=== PATIENT | male | born 1980 | race African-American/Black ===

== ENCOUNTER 2016-07-22 04:28 | Emergency (ER) | payer OTHER ==
--- NOTE | ~2016-07-22 | CR282 ---
[facility] A Service of [facility] RADIOLOGY TEXT RESULTS PATIENT: DAVID ALANIS LOCATION: [facility] : 82 UNIT #: [id number] AGE: [address]: SAMY COLBY APRN SEX: M ORDER DR: [id number] [facility] [address] [place], [place] [address] [id number] E MR#: [id number] Acc #: [id number] NAME: DAVID ALANIS : 1980 SEX: M STUDY DATE/TIME: 07/22/2016 4:12 UNIT: [facility] ROOM: STUDY DESCRIPTION: CR Wrist Min 3 View Rt Attending Physician: Samy Colby Aprn Ordering Physician: Samy Colby Aprn Primary Care Physician: Primary Care Physician No MEDICAL IMAGING REPORT This report is preliminary unless electronic signature is present EXAM Right wrist series 07/22/2016 HISTORY 36-year-old male in the ED complaining of wrist pain after a fall today. TECHNIQUE 3 view right wrist series. FINDINGS Postop changes prior wrist surgery with screw anchors in the radial styloid and lunate. No fracture, dislocation or other acute osseous abnormality is demonstrated today. IMPRESSION 1. No acute osseous abnormality. 2. Postop changes as noted above. Dictated by... Ricardo Carballo M.D. THIS IS AN ELECTRONICALLY VERIFIED REPORT Ricardo Carballo M.D. at 07/27/2016 9:15 AM SHAYNE/tim TD: 07/22/2016 06:17 JOB #: [id number] MEDICAL IMAGING REPORT Page 1 of 1 COPY
--- NOTE | ~2016-07-22 | CR150 ---
[facility] A Service of [facility] RADIOLOGY TEXT RESULTS PATIENT: DAVID ALANIS LOCATION: [facility] : 81 UNIT #: [id number] AGE: [address]: SAMY COLBY APRN SEX: M ORDER DR: [id number] [facility] [address] [place], [place] [address] [id number] E MR#: [id number] Acc #: [id number] NAME: DAVID ALANIS : 1980 SEX: M STUDY DATE/TIME: 07/22/2016 4:09 UNIT: [facility] ROOM: STUDY DESCRIPTION: CR Hip Min 2 Views Lt Attending Physician: Samy Colby Aprn Ordering Physician: Samy Colby Aprn Primary Care Physician: Primary Care Physician No MEDICAL IMAGING REPORT This report is preliminary unless electronic signature is present EXAM Left hip series 07/22/2016. HISTORY 36-year-old male in the ED complaining of hip pain after a fall today. Prior history of hip surgery. TECHNIQUE Two-view left hip series. FINDINGS Exam shows postop changes ORIF, old healed left acetabular fracture. There is also old fracture deformity involving the left inferior pubic ramus near the symphysis. Moderate degenerative arthropathy involving both hip joints, greater on the left. No fracture, dislocation or other acute osseous abnormality is demonstrated. IMPRESSION 1. Old fracture deformities involving the left acetabulum and left pubic bone. ORIF surgery left acetabulum. 2. No acute osseous abnormality. 3. Moderate degenerative arthropathy involving both hips. Dictated by... Ricardo Carballo M.D. THIS IS AN ELECTRONICALLY VERIFIED REPORT Ricardo Carballo M.D. at 07/27/2016 9:15 AM SHAYNE/moody TD: 07/22/2016 06:19 JOB #: [id number] [facility] A Service of [facility] RADIOLOGY TEXT RESULTS PATIENT: DAVID ALANIS LOCATION: [facility] : 81 UNIT #: [id number] AGE: [address]: SAMY COLBY APRN SEX: M ORDER DR: MEDICAL IMAGING REPORT Page 1 of 1 COPY
--- NOTE | ~2016-07-22 | CR285 ---
[facility] A Service of [facility] RADIOLOGY TEXT RESULTS PATIENT: DAVID ALANIS LOCATION: [facility] : 82 UNIT #: [id number] AGE: [address]: SAMY COLBY APRN SEX: M ORDER DR: [id number] [facility] [address] [place], [place] [address] [id number] E MR#: [id number] Acc #: [id number] NAME: DAVID ALANIS : 1980 SEX: M STUDY DATE/TIME: 07/22/2016 4:05 UNIT: [facility] ROOM: STUDY DESCRIPTION: CR Wrist W Navicular Min 3 Lt Attending Physician: Samy Colby Aprn Ordering Physician: Samy Colby Aprn Primary Care Physician: Primary Care Physician No MEDICAL IMAGING REPORT This report is preliminary unless electronic signature is present EXAM Left wrist series 07/22/2016 HISTORY 36-year-old male in the ED complaining of wrist pain after a fall today. TECHNIQUE 3 view left wrist series with additional scaphoid view. 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 Degenerative arthropathy is noted at the radiocarpal articulations. No fracture, dislocation or other acute osseous abnormality is identified today. IMPRESSION 1. No acute osseous abnormality. 2. 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 3. Radiocarpal degenerative arthropathy. Dictated by... Ricardo Carballo M.D. THIS IS AN ELECTRONICALLY VERIFIED REPORT Ricardo Carballo M.D. at 07/27/2016 9:15 AM JUAN ALBERTOW/tim TD: 07/22/2016 06:15 JOB #: [id number] MEDICAL IMAGING REPORT [facility] A Service of [facility] RADIOLOGY TEXT RESULTS PATIENT: DAVID ALANIS LOCATION: [facility] : 82 UNIT #: [id number] AGE: [address]: SAMY COLBY APRN SEX: M ORDER DR: Page 1 of 1 COPY
--- NOTE | ~2016-07-22 | CR108 ---
[facility] A Service of [facility] RADIOLOGY TEXT RESULTS PATIENT: DAVID ALANIS LOCATION: [facility] : 82 UNIT #: [id number] AGE: [address]: SAMY COLBY APRN SEX: M ORDER DR: [id number] [facility] [address] [place], [place] [address] [id number] E MR#: [id number] Acc #: [id number] NAME: DAVID ALANIS : 1980 SEX: M STUDY DATE/TIME: 07/22/2016 4:07 UNIT: [facility] ROOM: STUDY DESCRIPTION: CR Finger 2 View 2nd Lt Attending Physician: Samy Colby Aprn Ordering Physician: Samy Colby Aprn Primary Care Physician: Primary Care Physician No MEDICAL IMAGING REPORT This report is preliminary unless electronic signature is present EXAM Left index finger series 07/22/2016. HISTORY 36-year-old male in the ED complaining of left index finger pain after a fall today. TECHNIQUE Three-view left index finger series. FINDINGS The examination is negative. No fracture, dislocation or other acute osseous abnormality is demonstrated. IMPRESSION Negative left index finger series. Dictated by... Ricardo Carballo M.D. THIS IS AN ELECTRONICALLY VERIFIED REPORT Ricardo Carballo M.D. at 07/27/2016 9:15 AM Carlos Alberto TD: 07/22/2016 06:16 JOB #: [id number] MEDICAL IMAGING REPORT Page 1 of 1 COPY
[~2016-07-22 04:28] MED LIST: LORTAB 5/500 TA1 TA2 PO; VICODIN PO
== END 2016-07-22 06:50 | disposition home or self-care (01) ==
LOC: CED 04:28
DX: S63.502A Unspecified sprain of left wrist, initial encounter (principal); S63.501A Unspecified sprain of right wrist, initial encounter; S70.02XA Contusion of left hip, initial encounter; S63.611A Unspecified sprain of left index finger, initial encounter; F17.210 Nicotine dependence, cigarettes, uncomplicated; W01.0XXA Fall on same level from slipping, tripping and stumbling without subsequent striking against object, initial encounter; Y92.009 Unspecified place in unspecified non-institutional (private) residence as the place of occurrence of the external cause
CPT/HCPCS: 29130; 73110; 73140; 73502; 99284